=== PATIENT | male | born 1980 | race Caucasian/White ===

== ENCOUNTER 2016-11-12 20:23 | Emergency (ER) | payer OTHER ==
[~2016-11-12] VITALS: Ht 185.4 cm; Wt 74.8 kg
[2016-11-12 21:03] VITALS: BP 119/63
[2016-11-12] MEDS ORDERED: DOXY100C2 PO (21:23)
--- NOTE | 2016-11-12 21:23 | PHYS DOC ---
Past Medical History Past Medical History: No Pertinent History Past Surgical History: No Surgical History Alcohol Use: Rarely Drug Use: None Adult General Chief Complaint Chief Complaint: Congestion HPI HPI Patient is a 36 year old male presents to the emergency department stating that he has been having nasal congestion with sinus pressure with a cough this been productive with mucus color secretions. He states he is also been having some green colored secretions from his nares. Patient denies any fever, chills or any nausea vomiting. He states he's been taken [id number] medications to help with this however he has not had any relief. Review of Systems Review of Systems Constitutional: Denies fever or chills [] Eyes: Denies change in visual acuity, redness, or eye pain [] HENT: nasal congestion and sore throat [] Respiratory: cough denies shortness of breath [] Cardiovascular: No additional information not addressed in HPI [] GI: Denies abdominal pain, nausea, vomiting, bloody stools or diarrhea [] : Denies dysuria or hematuria [] Musculoskeletal: Denies back pain or joint pain [] Integument: Denies rash or skin lesions [] Neurologic: Denies headache, focal weakness or sensory changes [] Endocrine: Denies polyuria or polydipsia [] Allergies Allergies Allergies Coded Allergies Type Severity Reaction Last Updated Verified No Known Drug Allergies 11/12/16 No Physical Exam Physical Exam Constitutional: Well developed, well nourished, no acute distress, non-toxic appearance. [] HENT: Normocephalic, atraumatic, bilateral external ears normal, oropharynx moist, no oral exudates, nose normal. Bilateral tympanic membranes appear to be normal. Throat with postnasal drip yellow in color. Redness was noted in the throat no erythematous no exudate noted. Patient was noted to have frontal and maxillary sinus tenderness. Eyes: PERRLA, EOMI, conjunctiva normal, no discharge. [] Neck: Normal range of motion, no tenderness, supple, no stridor. [] Cardiovascular:Heart rate regular rhythm, no murmur [] Lungs & Thorax: Bilateral breath sounds clear to auscultation [] Skin: Warm, dry, no erythema, no rash. [] Back: No tenderness Extremities: No tenderness, no cyanosis, no clubbing, ROM intact, no edema. [] Neurologic: Alert and oriented X 3, normal motor function, normal sensory function, no focal deficits noted. [] Psychologic: Affect normal, judgement normal, mood normal. [] Current Patient Data Vital Signs Vital Signs Date Time Temp Pulse Resp B/P (MAP) Pulse Ox O2 Delivery O2 Flow Rate FiO2 11/12/16 21:03 100.7 83 18 96 Room Air 100.7 EKG EKG [] Radiology/Procedures Radiology/Procedures [] Course & Med Decision Making Course & Med Decision Making Pertinent Labs and Imaging studies reviewed. (See chart for details) Chest x-ray was obtained it was negative per Dr. Gilmore. Patient will be discharged home in stable condition. He'll be provided with doxycycline with recommendations for Sudafed and Mucinex DM as checked by ruby engineer over-the- counter. Recommended plenty of fluids. Patient will be discharged home in stable condition signs and symptoms to return back to emergency department as been provided. All questions and concerns been answered at patient's bedside. [] Dragon Disclaimer Dragon Disclaimer This electronic medical record was generated, in whole or in part, using a voice recognition dictation system. Departure Departure Impression: Primary Impression: Sinusitis Disposition: 01 HOME, SELF-CARE Condition: STABLE Referrals: Elenita RAMIREZ MD (PCP) Patient Instructions: Sinusitis, [id number] Additional Instructions: Activity as tolerated. Medications as prescribed. Sudafed and Mucinex DM as directed by ruby engineer [id number]. Tylenol or ibuprofen for fever chills or generalized body aches and discomfort. Follow-up through primary care physician in the next 3-5 days. Return back to emergency prior signs and symptoms of become worse. Scripts Doxycycline Hyclate (DOXYCYCLINE HYCLATE) 100 Mg Capsule 1 CAP PO BID, #20 CAP Prov: BRANNON WEBER APRN 11/12/16 Problem Qualifiers Primary Impression: Sinusitis Sinusitis location: unspecified location Chronicity: acute Recurrence: not specified as recurrent Qualified Codes: J01.90 - Acute sinusitis, unspecified BRANNON WEBER UNIT LEADER Nov 12, 2016 21:23
--- NOTE | 2016-11-13 08:16 | RAD ---
Exam performed: 2 views of the chest. Indication: cough and congestion times 8 days Date of Service:11/12/2016 10:40 PM . Comparison : None available Findings: PA and lateral radiographs of the chest reveal a normal cardiomediastinal contour. Haziness seen in the medial left lung base causing indistinctness of the medial left hemidiaphragm. This is seen as a parenchymal opacity in the retrocardiac region on the lateral projection. No pleural fluid is seen. The visualized osseous structures are unremarkable. Impression: Infiltrates medial basal segment of the left lower lobe
== END 2016-11-12 21:28 | disposition home or self-care (01) ==
LOC: ER 20:23
DX: J01.00 Acute maxillary sinusitis, unspecified (principal); J01.10 Acute frontal sinusitis, unspecified
CPT/HCPCS: 71020; 99284-25